=== PATIENT | female | born 1950 | race Caucasian/White ===

== ENCOUNTER 2016-02-22 06:49 | Emergency (ER) | payer BC ==
[~2016-02-22 06:49] MED LIST: ATIVAN1 MG PO; LEVAQUIN 750MG750 M1 PO; NO HOME MEDICATIONS; ZOFRAN ODT8 MG PO
[2016-02-22 10:57] VITALS: BP 144/87
== END 2016-02-22 11:00 | disposition home or self-care (01) ==
LOC: ED 06:49
DX: R33.9 Retention of urine, unspecified (principal); F10.20 Alcohol dependence, uncomplicated; J32.9 Chronic sinusitis, unspecified
CPT/HCPCS: A4354; A4358

== ENCOUNTER 2016-02-25 07:55 | Emergency (ER) | payer BC ==
[2016-02-25 08:47] VITALS: BP 138/74
== END 2016-02-25 08:46 | disposition home or self-care (01) ==
LOC: ED 07:55
DX: R33.9 Retention of urine, unspecified (principal)
CPT/HCPCS: A4358

== ENCOUNTER → 2016-03-02 | Outpatient (CLI) | payer BC ==
[~2016-03-02] MED LIST changes: +LEXAPRO 10MG10 MG PO
== END ==
LOC: RAD 15:46
DX: R10.84 Generalized abdominal pain (principal)
CPT/HCPCS: Q9967

== ENCOUNTER → 2016-06-19 | Day surgery (SDC) | payer BC | LOC: MSO 08:21 | DX: K31.9 Disease of stomach and duodenum, unspecified (principal); K29.70 Gastritis, unspecified, without bleeding; D12.3 Benign neoplasm of transverse colon; K52.9 Noninfective gastroenteritis and colitis, unspecified | CPT/HCPCS: 00810; A4649; J7120 ==

== ENCOUNTER → 2016-06-26 | Outpatient (CLI) | payer BC | LOC: RAD 17:40 | DX: R20.0 Anesthesia of skin (principal); R20.2 Paresthesia of skin; T78.40XS Allergy, unspecified, sequela ==

== ENCOUNTER 2016-07-08 01:15 | Emergency (ER) | payer BC ==
[~2016-07-08] VITALS: Ht 170.2 cm; Wt 61.4 kg
[~2016-07-08 01:15] MED LIST changes: -LEXAPRO 10MG10 MG PO
[2016-07-08] MEDS ORDERED: LEXAPRO 10MG10 MG PO (01:28)
[2016-07-08 02:44] VITALS: BP 160/91
== END 2016-07-08 02:44 | disposition home or self-care (01) ==
LOC: ED 01:15
DX: R51 Headache (principal); R10.13 Epigastric pain
CPT/HCPCS: J1885; J2550

== ENCOUNTER 2016-07-08 11:16 | Emergency (ER) | payer BC ==
[~2016-07-08] VITALS: Wt 59.1 kg
[~2016-07-08 11:16] MED LIST changes: +LEXAPRO 10MG10 MG PO
[2016-07-08 14:22] VITALS: BP 116/77
== END 2016-07-08 14:22 | disposition short-term general hospital (02) ==
LOC: ED 11:16
DX: G40.409 Other generalized epilepsy and epileptic syndromes, not intractable, without status epilepticus (principal); E87.1 Hypo-osmolality and hyponatremia
CPT/HCPCS: A4344; A4354; J7030

== ENCOUNTER 2020-05-29 08:16 | Emergency (ER) | payer MEDICARE, BC ==
[2020-05-29] MEDS ORDERED: AMLODIPINE BESYL5 MG PO (08:33)
[2020-05-29 09:01] LABS: HEMOGLOBIN 14.3 g/dL (12.5-16.0); MEAN CELL VOLUME 82 fl (78-100); MEAN CORPUSCULAR HEMOGLOBIN 29 pg (27-31); MEAN CORPUSCULAR HGB CONC 35 g/dL (33-37); MEAN PLATELET VOLUME 9.3 fl (7.4-10.4); PLATELET COUNT 218 K/mm3 (130-400); RED BLOOD COUNT 4.98 M/mm3 (4.10-5.30); RED CELL DISTRIBUTION WIDTH 12.5 % (11.5-14.5); WHITE BLOOD COUNT 6.9 K/mm3 (4.8-10.8)
[2020-05-29 09:11] LABS: ALBUMIN 3.8 g/dL (3.4-4.8); BAND 1 % (0-10); LYMPHOCYTE 10 % (20-51); MONOCYTE 3 % (3-10); NEUTROPHILS 86 % (42-75); POTASSIUM 3.4 mmol/L (3.5-5.1)
[2020-05-29 09:13] LABS: TOTAL PROTEIN 7.2 g/dL (6.2-8.1)
[2020-05-29 09:15] LABS: TOTAL BILIRUBIN 0.6 mg/dL (0.2-1.2)
[2020-05-29 13:10] LABS: PH-URINE 7.5 (5.0 - 8.0); URINE APPEARANCE CLEAR; URINE COLOR YELLOW; URINE PROTEIN(semi-quant) 1+ mg/dL (NEGATIVE)
[2020-05-29 13:11] LABS: URINE BILIRUBIN NEGATIVE (NEGATIVE); URINE BLOOD NEGATIVE (NEGATIVE); URINE GLUCOSE NEGATIVE (NEGATIVE); URINE KETONE 1+ (NEGATIVE); URINE LEUKOCYTE ESTERASE NEGATIVE (NEGATIVE); URINE MUCUS PRESENT (NOT PRESENT); URINE NITRATE NEGATIVE (NEGATIVE); URINE UROBILINOGEN NORMAL (NORMAL)
[2020-05-29 13:32] LABS: SODIUM 120 mmol/L (136-145)
[2020-05-29 13:38] LABS: POTASSIUM 3.2 mmol/L (3.5-5.1)
[2020-05-29 15:15] VITALS: BP 152/77
== END 2020-05-29 15:30 | disposition other institution (70) ==
LOC: ED 08:16
PROVIDERS: Family Medicine
DX: E87.1 Hypo-osmolality and hyponatremia (principal); I10 Essential (primary) hypertension; Z20.822 Contact with and (suspected) exposure to COVID-19; Z87.891 Personal history of nicotine dependence; Z79.899 Other long term (current) drug therapy
CPT/HCPCS: J1885; J2550; J3010; J3480; J7030

== ENCOUNTER 2020-05-29 14:30 | Inpatient (IN) | payer MEDICARE, BC ==
[~2020-05-29 14:30] MED LIST changes: +AMLODIPINE BESYL5 MG PO
[2020-05-29 17:24] VITALS: BP 152/77
[2020-05-29 18:01] LABS: POTASSIUM 3.7 mmol/L (3.5-5.1)
[2020-05-29 22:09] VITALS: BP 169/81
[2020-05-30 02:09] VITALS: BP 166/84
[2020-05-30 06:06] VITALS: BP 179/81
[2020-05-30 10:10] LABS: CALCIUM 7.9 mg/dL (8.3-10.5)
[2020-05-30 10:18] VITALS: BP 154/76
[2020-05-30 12:32] VITALS: BP 187/80
== END 2020-05-30 12:40 | disposition short-term general hospital (02) | DRG 641 ==
LOC: MED/SURG 14:30
PROVIDERS: ADMIT Family Medicine
DX: E87.1 Hypo-osmolality and hyponatremia (principal); I10 Essential (primary) hypertension; R63.0 Anorexia; R11.2 Nausea with vomiting, unspecified; R51.9 Headache, unspecified; Z90.710 Acquired absence of both cervix and uterus; Z87.891 Personal history of nicotine dependence
CPT/HCPCS: C9113; J1650; J1885; J2550; J3010; J3480; J7030

== ENCOUNTER → 2021-08-17 | Outpatient (CLI) | payer MEDICARE, BC | LOC: MAMMO 13:00 | DX: Z12.31 Encounter for screening mammogram for malignant neoplasm of breast (principal) ==